=== PATIENT | female | born 1950 | race Caucasian/White ===

== ENCOUNTER 2019-06-13 07:02 | Day surgery (SDC) | payer MEDICARE, OTHER ==
[~2019-06-13] VITALS: Ht 162.6 cm; Wt 81.0 kg
[~2019-06-13 07:02] MED LIST: Aspirin EC81 MG PO; B-121000 MC3 PO; BIOTIN5000 MC1 SL; CALCIT950 PO; DAILY MULTIPLE1 EAC1 PO; ERGO400 PO; FLAX PO; FLAXSEED PO; Fergon240 M1 PO; Hair, Skin & N1 EACH PO; Inderal 20 mg T20 MG PO; METF500 PO; Super Calcium600 MG PO; VITAMIN D31000 UNIT PO
--- NOTE | 2019-06-13 11:50 | NUR ---
06/13/19 1150 Maricarmen Jiménez PT UP TO BATHROOM. VOIDING PINK URINE. PT TO THE BATHROOM A 2ND TIME. HAT IN PLACE TO CATCH SPECIMEN.
[2019-06-13 12:44] LABS: Source, Urine Voided
[2019-06-13 12:51] LABS: Bilirubin, Urine Neg (Neg); Blood, Urine 5+ (Neg); Glucose Qualitative, Urine Neg (Neg); Ketones, Urine Neg (Neg); Leukocyte Esterase, Urine 1+ (Neg); Nitrite, Urine Neg (Neg); Protein, Urine Neg (Neg); Urobilinogen, Urine NORM (Normal)
[2019-06-13 13:12] LABS: Appearance, Urine Hazy (Clear); Color, Urine Yellow (P-Yellow)
[2019-06-13 13:13] LABS: Red Blood Cells, Urine 25-50 /hpf (0-2); Squamous Epithelial Cells Rare /hpf (Few); White Blood Cells, Urine 0-2 /hpf (0-5)
[2019-06-13 13:14] LABS: Bacteria Few /hpf; Mucus Light (0-Heavy)
== END 2019-06-13 12:42 | disposition home or self-care (01) ==
LOC: ORSCSDS 07:02
PROVIDERS: Otolaryngology
PROC: 09DR4ZZ Extraction of Left Maxillary Sinus, Percutaneous Endoscopic Approach (ICD-10-PCS; principal; 2019-06-13 08:15)
PROC: 8E09XBZ Computer Assisted Procedure of Head and Neck Region (ICD-10-PCS; principal; 2019-06-13 08:15)
DX: J32.4 Chronic pansinusitis (principal); J33.0 Polyp of nasal cavity; I10 Essential (primary) hypertension; E11.9 Type 2 diabetes mellitus without complications; Z79.899 Other long term (current) drug therapy; Z79.84 Long term (current) use of oral hypoglycemic drugs
CPT/HCPCS: 81001; 82947; 87086; 88305; 88311; C2625; J0330; J1100; J2250; J2704; J3010; J7120